=== PATIENT | female | born 2000 | race Caucasian/White ===

== ENCOUNTER 2019-07-23 00:31 | Emergency (ER) | payer MEDICAID ==
[~2019-07-23] VITALS: Ht 165.1 cm; Wt 52.8 kg
[2019-07-23 00:37] VITALS: BP 119/66
--- NOTE | 2019-07-23 01:38 | NUR ---
pt to room from lobby
[2019-07-23] MEDS ORDERED: CEFTRIAXONE 250 MG IM ONE (02:00)
[2019-07-23] MEDS ORDERED: AZITHROMYCIN 500 MG TABLET PO ONE (02:00)
[2019-07-23] MEDS ORDERED: AZITHROMYCIN 250 MG TABLET ONE (02:02)
[2019-07-23] MEDS ORDERED: CEFTRIAXONE 250 MG ONE (02:02)
[2019-07-23 02:04] LABS: HCG UR SG 1.017 (1.003-1.030)
[2019-07-23 02:12] LABS: CLUE CELLS NONE SEEN (NONE SEEN); WET PREP WBCS FEW (FEW)
[2019-07-23 03:01] LABS: MICROSCOPIC AUTO
[2019-07-23 03:02] LABS: CULTURE INDICATED? NO
--- NOTE | 2019-07-23 03:27 | NUR ---
Discharge instructions given. All questions and concerns addressed. Patient ambulatory with a steady gait. Belongings with patient.
== END 2019-07-23 03:29 | disposition home or self-care (01) ==
LOC: ED 01:31
DX: A64 Unspecified sexually transmitted disease (principal)
CPT/HCPCS: 81001; 81025; 87210; 87491; 87591; 87808; 96372; 99283; J0696

== ENCOUNTER 2020-03-26 01:38 | Emergency (ER) | payer MEDICAID ==
[~2020-03-26] VITALS: Ht 165.1 cm; Wt 57.0 kg
--- NOTE | 2020-03-26 01:47 | NUR ---
PT CAME INTO ED TONIGHT DUE TO LOWER LEFT TOOTH PAIN, PT DENIES TRAUMA, VISION CHANGES OR NOTICABLE SWELLING. PT STATES IT IS DIFFICULT TO CHEW AND SWALLOW, DOES NOT HAVE A DENTIST AT THIS TIME. PT NAD, GROSS NEURO INTACT, BF AT BS, WCTM. PT PLACED ON SPO2/BP MONITORING AT THIS TIME. GIVEN WARM BLANKETS FOR COMFORT, BED IN LOWEST, CALL LIGHT ON LAP.
[2020-03-26] MEDS ORDERED: BUPIVACAINE 0.25% INFIL ONE (02:00)
[2020-03-26] MEDS ORDERED: PENICILLIN VK 500MG TABLET PO ONE (02:00)
[2020-03-26] MEDS ORDERED: LIDOCAINE 1%, 2ML INFIL ONE (02:00)
[2020-03-26] MEDS ORDERED: LIDOCAINE-MPF 1%, 2ML ONE (02:05)
[2020-03-26] MEDS ORDERED: BUPIVACAINE 0.25% ONE (02:05)
[2020-03-26] MEDS ORDERED: PENICILLIN VK 500MG TABLET ONE (02:25)
[2020-03-26] MEDS ORDERED: HYDROcodone/APAP 5/325 TABLET ONE (02:58)
--- NOTE | 2020-03-26 02:59 | NUR ---
Patient given discharge instructions and they have confirmed that they understand the instructions. Patient ambulatory with steady gait. nad, denies additional questions or needs, provided dental list, no personal belongings left in room after dc.
[2020-03-26 03:00] VITALS: BP 120/72
[2020-03-26] MEDS ORDERED: HYDROcodone/APAP 5/325 TABLET PO ONE (03:00)
== END 2020-03-26 03:02 | disposition home or self-care (01) ==
LOC: ED 02:40
DX: K02.9 Dental caries, unspecified (principal); K08.89 Other specified disorders of teeth and supporting structures; R51.9 Headache, unspecified; Z72.9 Problem related to lifestyle, unspecified
CPT/HCPCS: 64400; 99284

== ENCOUNTER 2020-12-20 00:56 | Inpatient (IN) | payer MEDICAID ==
[~2020-12-20] VITALS: Ht 165.1 cm; Wt 58.2 kg
[2020-12-20] MEDS ORDERED: ONDANSETRON 2MG/ML, 2ML IVPush ONE ×2 (01:30→04:30)
[2020-12-20] MEDS ORDERED: MORPHINE SULFATE 4 MG/ML, 1ML IVPush ONE ×3 (01:30→04:30)
[2020-12-20] MEDS ORDERED: MORPHINE SULFATE 4 MG/ML, 1ML ONE ×4 (01:31→06:54)
[2020-12-20] MEDS ORDERED: ONDANSETRON 2MG/ML, 2ML ONE ×2 (01:31→04:09)
[2020-12-20 01:34] LABS: MEAN CORPUSCULAR HEMOGLOBIN 31.8 pg (27.0-34.8); MEAN CORPUSCULAR HGB CONC 34.4 g/dL (32.4-35.8); MEAN PLATELET VOLUME 7.8 fL (7.4-10.4); PLATELET COUNT 360 x10^3/uL (130-400); RED BLOOD COUNT 4.38 x10^6/uL (3.82-5.3); RED CELL DISTRIBUTION WIDTH 13.4 % (9.6-15.2)
[2020-12-20 01:42] LABS: ALBUMIN 3.8 g/dL (3.4-5.0); ANION GAP 9 mmol/L (5-15); CALCIUM 9.7 mg/dL (8.5-10.1); CHLORIDE 107 mmol/L (98-107); CREATININE 0.57 mg/dL (0.55-1.02)
[2020-12-20 01:46] LABS: ALANINE AMINOTRANSFERASE 50 U/L (12-78); ALKALINE PHOSPHATASE 81 U/L (45-117); BILIRUBIN,TOTAL 0.7 mg/dL (0.2-1.0); TOTAL PROTEIN 7.7 g/dL (6.4-8.2)
--- NOTE | 2020-12-20 01:49 | NUR ---
PT C/O OF RIGHT SIDED ABD AND FLANK PAIN THAT RADIATES TO HER BACK. PT REPORTS N/V AND DENIES DIARRHEA. ATTACHED TO MONITORS. VSS. APPEARS IN PAIN. TOLERATIONG MEDS WELL. BED IN LOW POSITIPON, RAILS ENGAGED. CALL LIGHT ON LAP. BF AT BEDSIDE 18 WEEKS , DENIES VAG BLEEDING OR DISCHARGE. WCTM
--- NOTE | 2020-12-20 01:52 | NUR ---
PT ABULATED TO BATHROOM AND BACK TO ROOM WITH STEADY GAIT. UNABLE TO URINATE.
[2020-12-20 01:55] LABS: BAND#(MANUAL) 1.36 x10^3/uL; BANDS%(MANUAL) 9 % (0-7); LYMPH#(MANUAL) 1.06 x10^3/uL (1-3.4); LYMPHS% (MANUAL) 7 % (22-44); MONOS#(MANUAL) 0.45 x10^3/uL (0.3-2.7); MONOS% (MANUAL) 3 % (2-9); SEG#(MANUAL) 12.23 x10^3/uL (1.8-6.8); SEGS% (MANUAL) 81 % (42-75)
[2020-12-20 01:56] LABS: <PLATELET ESTIMATE> ADEQUATE; <PLT MORPHOLOGY> NORMAL PLT MORPH; <RBC MORPHOLOGY> NORMAL; PMNS WITH VACUOLES 1+
--- NOTE | 2020-12-20 01:57 | NUR ---
US TECH WITH PT
--- NOTE | 2020-12-20 02:20 | NUR ---
RECIEVED VERBAL FROM ER MD TO GIVE 1L NS TO HELP PT URINATE. US TECH MENTIOND THEIR WAS NO URINE IN PTS BLADDER. LEONIDES. PAMELA.
--- NOTE | 2020-12-20 02:53 | NUR ---
PT REPORTING THAT SHE CAN STILL NOT URINATE AND DOES NOT HAVE THE URGE TOO.
[2020-12-20] MEDS ORDERED: SODIUM CHLORIDE 0.9% 1,000ML IVBOLUS ONE ×2 (03:00→06:00)
--- NOTE | 2020-12-20 03:16 | NUR ---
REPORT RECEIVED FROM MONTY COMER
--- NOTE | 2020-12-20 03:22 | NUR ---
GAVE REPORT TO DANIEL COMER. TRANSFER OF CARE.
[2020-12-20 03:31] LABS: MICROSCOPIC INDICATED
--- NOTE | 2020-12-20 03:31 | NUR ---
URINE SAMPLE PROVIDED, SENT TO LAB BY THIS RN. PT SITTING UPRIGHT ON LEONIDES WOO, VSS. PT DENIES ANY NEEDS AT THIS TIME. CALL LIGHT AND PERSONAL BELONGINGS WITHIN REACH.
--- NOTE | 2020-12-20 04:30 | NUR ---
STRAIGHT CATH PERFORMED PER ERP ORDER. PT TOLERATED WELL. PT DENIES ANY ADDITIONAL NEEDS AT THIS TIME. CALL LIGHT AND PERSONAL BELONGINGS WITHIN REACH.
[2020-12-20 04:43] LABS: MICROSCOPIC AUTO
[2020-12-20] MEDS ORDERED: CEFTRIAXONE 1,000 MG in DEXTROSE 5% 50 ML IVPB ONE (06:00)
--- NOTE | 2020-12-20 06:47 | NUR ---
REPORT FROM SOULEYMANE SANCHEZ
--- NOTE | 2020-12-20 06:47 | NUR ---
REPORT GIVEN TO YOLANDE COMER
--- NOTE | 2020-12-20 06:57 | NUR ---
PT MEDICATED PER EMAR. Patient is resting comfortably in bed. Bed in lowest, rails engaged, call light on lap.Vital Signs within normal limits. WCTM. FAMILY AT BS
[2020-12-20] MEDS ORDERED: MORPHINE SULFATE 4 MG/ML, 1ML IVPush PRN (07:00)
[2020-12-20] MEDS ORDERED: ONDANSETRON 2MG/ML, 2ML IVPush PRN ×2 (07:00→08:00)
[2020-12-20] MEDS ORDERED: SODIUM CHLORIDE 0.9% 1,000 ML IV ONE (07:00)
--- NOTE | 2020-12-20 07:17 | NUR ---
PT TO MRI
--- NOTE | 2020-12-20 07:25 | NUR ---
Pt to be admitted to , room 337. Report called to MIGUEL ANGEL.
[2020-12-20] MEDS ORDERED: ONDANSETRON ODT 4 MG PO PRN (08:00)
[2020-12-20] MEDS ORDERED: ACETAMINOPHEN 325 MG TABLET PO PRN (08:00)
[2020-12-20] MEDS ORDERED: DOCUSATE 100 MG CAPSULE PO PRN (08:00)
--- NOTE | 2020-12-20 08:13 | NUR ---
PT BACK FROM MRI
[2020-12-20] MEDS: SODIUM CHLORIDE 0.9% 1,000 ML IV SCH ×2 (10:08→16:00)
[2020-12-20] MEDS: morphine SULFATE 10 MG/ML, 1ML IVPush PRN ×2 (10:15→15:11)
[2020-12-20 14:21] VITALS: BP 120/64
[2020-12-20 17:38] VITALS: BP 120/64
[2020-12-20 19:58] VITALS: BP 94/55
[2020-12-21 01:23] VITALS: BP 89/50
[2020-12-21 01:46] VITALS: BP 88/51
[2020-12-21 01:59] VITALS: BP 87/49
[2020-12-21] MEDS: SODIUM CHLORIDE 0.9% 1,000 ML IV SCH ×2 (03:46→11:30)
[2020-12-21 06:09] LABS: ANION GAP 4 mmol/L (5-15); CALCIUM 7.8 mg/dL (8.5-10.1); CHLORIDE 109 mmol/L (98-107); CREATININE 0.35 mg/dL (0.55-1.02)
[2020-12-21 06:52] LABS: BASOPHILS % (AUTO) 1 % (0-1); EOSINOPHILS % (AUTO) 1 % (1-7); LYMPHOCYTES % (AUTO) 13 % (22-44); MEAN CORPUSCULAR HGB CONC 35.3 g/dL (32.4-35.8); MEAN PLATELET VOLUME 7.4 fL (7.4-10.4); MONOCYTES % (AUTO) 7 % (2-9); NEUTROPHILS % (AUTO) 78 % (42-75); PLATELET COUNT 231 x10^3/uL (130-400); RED BLOOD COUNT 3.18 x10^6/uL (3.82-5.3); RED CELL DISTRIBUTION WIDTH 13.3 % (9.6-15.2)
[2020-12-21] MEDS ORDERED: CEFTRIAXONE 1,000 MG in DEXTROSE 5% 50 ML IVPB SCH (08:00)
[2020-12-21 08:28] VITALS: BP 75/33
[2020-12-21 08:29] VITALS: BP 79/46
[2020-12-21 08:30] VITALS: BP 84/44
[2020-12-21] MEDS ORDERED: ACET325T26 PO (10:35)
[2020-12-21] MEDS ORDERED: CEPH-376 PO (10:36)
[2020-12-21] MEDS ORDERED: CEPHALEXIN 500 MG CAPSULE PO SCH (11:00)
== END 2020-12-21 12:05 | disposition home or self-care (01) | DRG 831 ==
LOC: ED 06:12 → EDIP 06:40 → 3N 08:30
PROVIDERS: ADMIT Hospitalist; ATTEND Hospitalist
DX: O98.812 Other maternal infectious and parasitic diseases complicating pregnancy, second trimester (principal); A41.9 Sepsis, unspecified organism; O23.02 Infections of kidney in pregnancy, second trimester; N13.6 Pyonephrosis; O23.42 Unspecified infection of urinary tract in pregnancy, second trimester; E87.1 Hypo-osmolality and hyponatremia; N20.1 Calculus of ureter; Z20.822 Contact with and (suspected) exposure to COVID-19; O99.282 Endocrine, nutritional and metabolic diseases complicating pregnancy, second trimester; Z3A.18 18 weeks gestation of pregnancy
CPT/HCPCS: 36415; 74181; 76700; 80048; 80053; 81001; 83690; 85025; 87086; 87635; 96361; 96374; 96375; G0378; J0696; J2405; J2270; J7030

== ENCOUNTER 2021-01-18 20:13 | Emergency (ER) | payer MEDICAID ==
[~2021-01-18 20:13] MED LIST: ACET325T26 PO; CEPH-376 PO
== END 2021-01-18 21:00 ==
LOC: ED 20:30
DX: R10.9 Unspecified abdominal pain (principal); O26.892 Other specified pregnancy related conditions, second trimester; Z3A.22 22 weeks gestation of pregnancy
CPT/HCPCS: 76770; 99284

== ENCOUNTER 2021-01-18 21:12 | Inpatient (IN) | payer MEDICAID ==
[~2021-01-18] VITALS: Ht 165.1 cm; Wt 55.0 kg
[2021-01-18] MEDS ORDERED: PLEASE ENTER HEIGHT AND WEIGHT MC SCH (21:30)
[2021-01-18] MEDS: LACTATED RINGERS 1,000 ML IV SCH (21:30)
[2021-01-18] MEDS: MORPHINE SULFATE 4 MG/ML, 1ML IVPush PRN ×2 (21:43→23:45)
[2021-01-18 21:49] LABS: BASOPHILS % (AUTO) 0 % (0-1); EOSINOPHILS % (AUTO) 0 % (1-7); LYMPHOCYTES % (AUTO) 6 % (22-44); MEAN CORPUSCULAR HEMOGLOBIN 31.8 pg (27.0-34.8); MEAN CORPUSCULAR HGB CONC 33.7 g/dL (32.4-35.8); MEAN PLATELET VOLUME 7.7 fL (7.4-10.4); MONOCYTES % (AUTO) 4 % (2-9); NEUTROPHILS % (AUTO) 90 % (42-75); PLATELET COUNT 298 x10^3/uL (130-400); RED BLOOD COUNT 3.88 x10^6/uL (3.82-5.3); RED CELL DISTRIBUTION WIDTH 13.3 % (9.6-15.2)
[2021-01-18 22:01] LABS: ANION GAP 6 mmol/L (5-15); CALCIUM 8.5 mg/dL (8.5-10.1); CHLORIDE 105 mmol/L (98-107)
[2021-01-18 22:04] LABS: ALANINE AMINOTRANSFERASE 29 U/L (12-78); ALKALINE PHOSPHATASE 71 U/L (45-117); BILIRUBIN,TOTAL 0.3 mg/dL (0.2-1.0); TOTAL PROTEIN 6.6 g/dL (6.4-8.2)
[2021-01-18] MEDS: ONDANSETRON 2MG/ML, 2ML IVPush PRN (22:14)
[2021-01-19 00:41] LABS: AMPHETAMINE SCREEN, URINE Negative (Negative); BARBITURATE SCREEN, URINE Negative (Negative); BENZODIAZEPINE SCREEN, URINE Negative (Negative); CANNABINOID SCREEN, URINE Negative (Negative); COCAINE SCREEN, URINE Negative (Negative); METHADONE SCREEN, URINE Negative (Negative); OPIATE SCREEN, URINE Positive (Negative)
[2021-01-19 00:48] LABS: MICROSCOPIC INDICATED
[2021-01-19] MEDS: LACTATED RINGERS 1,000 ML IV SCH ×3 (01:00→15:00)
[2021-01-19] MEDS: MORPHINE SULFATE 4 MG/ML, 1ML IVPush PRN ×2 (02:47→11:56)
[2021-01-19] MEDS ORDERED: ACETAMINOPHEN 325 MG TABLET ONE (08:13)
[2021-01-19] MEDS: ONDANSETRON 2MG/ML, 2ML IVPush PRN (08:15)
[2021-01-19 10:54] LABS: ANION GAP 5 mmol/L (5-15); CALCIUM 8.4 mg/dL (8.5-10.1); CHLORIDE 107 mmol/L (98-107)
[2021-01-19 10:55] LABS: CREATININE 0.58 mg/dL (0.55-1.02)
[2021-01-19] MEDS: PRENATAL VIT/IRON/FA 1 EACH TABLET PO SCH (15:20)
[2021-01-20] MEDS: LACTATED RINGERS 1,000 ML IV SCH ×3 (00:05→20:10)
[2021-01-20 06:15] LABS: BASOPHILS % (AUTO) 1 % (0-1); EOSINOPHILS % (AUTO) 1 % (1-7); LYMPHOCYTES % (AUTO) 22 % (22-44); MEAN CORPUSCULAR HEMOGLOBIN 33.2 pg (27.0-34.8); MEAN CORPUSCULAR HGB CONC 35.1 g/dL (32.4-35.8); MEAN PLATELET VOLUME 7.7 fL (7.4-10.4); MONOCYTES % (AUTO) 8 % (2-9); NEUTROPHILS % (AUTO) 69 % (42-75); PLATELET COUNT 223 x10^3/uL (130-400); RED CELL DISTRIBUTION WIDTH 13.5 % (9.6-15.2)
[2021-01-20 06:26] LABS: ANION GAP 5 mmol/L (5-15); CHLORIDE 110 mmol/L (98-107)
[2021-01-20 06:31] LABS: CREATININE 0.31 mg/dL (0.55-1.02)
[2021-01-20] MEDS: PRENATAL VIT/IRON/FA 1 EACH TABLET PO SCH (09:00)
[2021-01-20 12:25] VITALS: BP 86/48
[2021-01-20] MEDS ORDERED: OMNIPAQUE 350 MG/ML, 50 ML BOTTLE ONE (13:58)
[2021-01-20] MEDS ORDERED: PROPOFOL 10 MG/ML, 20ML ONE (14:19)
[2021-01-20] MEDS ORDERED: SUCCINYLCHOLINE 20 MG/ML, 10ML ONE (14:19)
[2021-01-20] MEDS ORDERED: LIDOCAINE-MPF 2% ,5ML ONE (14:19)
[2021-01-20] MEDS ORDERED: CHLORHEXIDINE 15 ML UDC PO ONE (14:30)
[2021-01-20] MEDS ORDERED: CEFAZOLIN 1,000 MG ONE (14:36)
[2021-01-20] MEDS ORDERED: ONDANSETRON 2MG/ML, 2ML ONE (14:50)
[2021-01-20] MEDS ORDERED: morphine SULFATE 10 MG/ML, 1ML IVPush PRN (15:00)
[2021-01-20] MEDS ORDERED: ACETAMINOPHEN 325 MG TABLET PO PRN (15:00)
[2021-01-20] MEDS ORDERED: PROMETHAZINE 25 MG/ML, 1ML IVPush PRN (15:00)
[2021-01-20] MEDS ORDERED: FENTANYL PF 100 MCG/2ML IV PRN (15:00)
[2021-01-20] MEDS ORDERED: HYDROcodone/APAP 7.5-325MG/15ML UDC PO PRN (15:00)
[2021-01-20] MEDS ORDERED: FENTANYL PF 100 MCG/2ML ONE (15:04)
[2021-01-20] MEDS ORDERED: MORPHINE SULFATE 4 MG/ML, 1ML ONE ×3 (15:23→16:40)
[2021-01-20] MEDS: morphine SULFATE 10 MG/ML, 1ML IVPush PRN ×3 (16:23→16:42)
[2021-01-20 18:57] VITALS: BP 104/68
[2021-01-20] MEDS: DOCUSATE 100 MG CAPSULE PO SCH (20:13)
[2021-01-20] MEDS: HYDROcodone/APAP 5/325 TABLET PO PRN (20:14)
[2021-01-20] MEDS ORDERED: PHENAZOPYRIDINE 200 MG TABLET PO PRN (20:30)
[2021-01-20] MEDS ORDERED: MORPHINE SULFATE 4 MG/ML, 1ML IVPush PRN (23:00)
[2021-01-20 23:38] VITALS: BP 102/68
[2021-01-21 03:26] VITALS: BP 96/60
[2021-01-21] MEDS: HYDROcodone/APAP 5/325 TABLET PO PRN ×2 (04:58→14:55)
[2021-01-21] MEDS: LACTATED RINGERS 1,000 ML IV SCH (07:26)
[2021-01-21 07:47] VITALS: BP 99/63
[2021-01-21] MEDS: PRENATAL VIT/IRON/FA 1 EACH TABLET PO SCH (10:38)
[2021-01-21] MEDS: DOCUSATE 100 MG CAPSULE PO SCH (10:38)
[2021-01-21 12:34] VITALS: BP 97/63
[2021-01-21] MEDS ORDERED: HYDR-2214 PO (14:30)
== END 2021-01-21 15:30 | disposition home or self-care (01) | DRG 832 ==
LOC: LDOP 21:12 → OBSVTOIN 01-19 00:17 → LDIP 01-19 00:17 → 2NE 01-19 10:07 → 4NE 01-20 17:37
PROVIDERS: ADMIT Obstetrics & Gynecology; ATTEND Obstetrics & Gynecology
PROC: 0TJ98ZZ Inspection of Ureter, Via Natural or Artificial Opening Endoscopic (ICD-10-PCS; principal; 2021-01-20 14:30)
DX: O99.891 Other specified diseases and conditions complicating pregnancy (principal); N13.2 Hydronephrosis with renal and ureteral calculous obstruction; Z3A.22 22 weeks gestation of pregnancy; Z87.442 Personal history of urinary calculi
CPT/HCPCS: 36415; J3490; 76770; 80048; 80053; 80307; 81001; 85025; 87086; 87635; 99284; C1726; G0378; J0690; J2405; J2704; J3010; Q9967; C1758; J0330; J2270; J7120